=== PATIENT | female | born 1985 | race Caucasian/White ===

== ENCOUNTER 2019-05-17 15:05 | Emergency (ER) | payer BC ==
[2019-05-17 15:34] VITALS: BP 115/90; PULSE 91; TEMP 98.3; BMI 20.3
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
== END 2019-05-17 15:58 | disposition home or self-care (01) ==
LOC: FER 15:05
DX: S06.0X0A Concussion without loss of consciousness, initial encounter (principal); Y04.2XXA Assault by strike against or bumped into by another person, initial encounter; Y93.89 Activity, other specified; Y92.89 Other specified places as the place of occurrence of the external cause; T14.8XXA Other injury of unspecified body region, initial encounter
CPT/HCPCS: 99283-25